=== PATIENT | male | born 1970 | race American Indian/Alaskan Native ===

== ENCOUNTER 2016-05-20 14:16 | Emergency (ER) | payer SELFPAY ==
[2016-05-20 14:52] VITALS: BP 128/85
[2016-05-20 15:12] LABS: Bacteria,Urine 1+ /HPF (Negative); Bilirubin,Urine NEG (Negative); Blood,Urine NEG (Negative); Ketones,Urine NEG (Negative); Leukocyte Esterase,Urine TR (Negative); Mucus,Urine FEW /HPF; Nitrite,Urine NEG (Negative); Protein,Urine <15 mg/dL mg/dL (Negative); WBC,Urine < 1.0 /HPF (0.0-6.0)
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
== END 2016-05-20 18:39 | disposition home or self-care (01) ==
LOC: ED 14:16
DX: N50.819 Testicular pain, unspecified (principal); R30.0 Dysuria; R10.30 Lower abdominal pain, unspecified; F12.10 Cannabis abuse, uncomplicated; Z87.891 Personal history of nicotine dependence
CPT/HCPCS: 81001; 99283

== ENCOUNTER 2016-11-26 16:18 | Emergency (ER) | payer SELFPAY ==
[2016-11-26 20:53] VITALS: BP 113/70
[2016-11-26] MEDS ORDERED: FLEXERIL PO ONE (21:14)
[2016-11-26] MEDS ORDERED: MOTRIN PO ONE (21:14)
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
== END 2016-11-26 22:40 | disposition home or self-care (01) ==
LOC: ED 16:18
DX: L02.214 Cutaneous abscess of groin (principal); M25.511 Pain in right shoulder; G89.29 Other chronic pain; Z87.891 Personal history of nicotine dependence
CPT/HCPCS: 99282

== ENCOUNTER 2017-09-05 18:05 | Emergency (ER) | payer SELFPAY ==
[2017-09-05 18:25] VITALS: BP 132/83
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
== END 2017-09-05 19:05 | disposition home or self-care (01) ==
LOC: ED 18:05
DX: H61.002 Unspecified perichondritis of left external ear (principal); Z87.891 Personal history of nicotine dependence
CPT/HCPCS: 99281

== ENCOUNTER 2017-11-20 06:38 | Inpatient (IN) | payer OTHER ==
[2017-11-20 07:15] LABS: Hematocrit 41.2 % (35.5-45.6); Mean Corpuscular HGB Conc 34 % (32-34); Mean Corpuscular Hemoglobin 32 pg (28-32); Mean Corpuscular Volume 94 fl (84-94); Platelet Count 176 K/mm3 (140-440); Red Blood Count 4.41 M/mm3 (3.65-5.03); Red Cell Distribution Width 13.3 % (13.2-15.2)
[2017-11-20] MEDS ORDERED: ASPIRIN PO ONE (08:03)
[2017-11-20] MEDS ORDERED: NITRO-BID 2% TP ONE (08:03)
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
[2017-11-20 08:11] LABS: BUN/Creatinine Ratio 11; Blood Urea Nitrogen 12 mg/dL (9-20); Calcium 9.6 mg/dL (8.4-10.2); Hemolysis Index 5
[2017-11-20 08:27] LABS: Eosinophils % (Manual) 0 % (0.0-4.3); Total Cells Counted 100
[2017-11-20 08:28] LABS: Platelet Estimate Consistent w Auto; RBC Morphology Normal
[2017-11-20] MEDS ORDERED: BABY ASPIRIN PO STA (09:00)
[2017-11-20] MEDS ORDERED: SODIUM CHLORIDE FLUSH SYRINGE 10 ML IV PRN (09:00)
[2017-11-20] MEDS ORDERED: MORPHINE IV PRN (09:00)
--- NOTE | 2017-11-20 09:04 | History and Physical Report ---
History of Present Illness Date of examination: 11/20/17 Chief complaint: Chest pain History of present illness: 47-year-old -[place] man with no significant past medical history presented to the emergency department complaining of chest pain that has been going on for the last 3 days. Pain is in the epigastric area radiating to the neck, sharp, 10 out of 10 intensity, associated with shortness of breath. Patient is also complaining pressure like sensation. No alleviating or aggravating factors identified. Patient denied any cough, diaphoresis, fever, chills. REVIEW OF SYSTEMS: GENERAL: no weight change, no fatigue, no fever HEAD: no head ache EYES: no blurry vision, no acute visual loss EARS: no hearing loss, no discharge, no earache NOSE: no stuffiness, no sneezing, no discharge MOUTH, THROAT AND NECK: no bleeding gums, no sore throat, no swollen neck CARDIAC: As stated in the HPI. RESPIRATORY: As stated in the HPI. GI: no decreased appetite, no nausea, no vomiting, no dysphagia, no diarrhea, no constipation, no abdominal pain URINARY: no change in frequency, no urgency, no polyuria, no hematuria, no incontinence MUSCULOSKELETAL: no muscle weakness, no pain, no joint stiffness NEUROLOGIC: no loss of sensation/numbness, no tingling, no tremors, no weakness/ paralysis HEMATOLOGIC: no anemia, no easy bruising SKIN: no rashes ENDOCRINE: no heat/cold intolerance, no polyuria, no polydipsia, no thyroid problems, no diabetes PSYCHIATRIC: no anxiety, no depression, no suicidal ideations Past History Past Medical History: No medical history Past Surgical History: Other (hernia repair) Social history: smoking (creatine), alcohol abuse (conclusion on 6 packs of beer ), full code. denies: prescription drug abuse, IV drug use Family history: CAD (father), other (his mother has stomach aneurysm) Medications and Allergies Allergies Allergy/AdvReac Type Severity Reaction Status Date / Time No Known Allergies Allergy Verified 12/08/14 17:38 Home Medications Medication Instructions Recorded Confirmed Last Taken Type Permethrin 5% [Acticin 5% CREAM] 1 applicatio TP ONCE #1 tube 12/08/14 Unknown Rx Ciprofloxacin HCl [Ciprofloxacin 500 mg PO Q12HR #20 tab 02/03/16 Unknown Rx TAB] Ibuprofen [Motrin] 400 mg PO Q8H PRN #21 tablet 12/11/16 Unknown Rx Tamsulosin [Flomax] 0.4 mg PO QDAY #7 cap 02/03/16 Unknown Rx Ibuprofen [Motrin] 800 mg PO Q8HR PRN #12 tablet 05/20/16 Unknown Rx Sulfamethoxazole/Trimethoprim 1 each PO BID #12 tablet 05/20/16 Unknown Rx [Bactrim DS TAB] Ibuprofen [Motrin] 800 mg PO Q8HR PRN #21 tablet 11/26/16 Unknown Rx cephALEXin [Keflex] 500 mg PO Q12HR #14 cap 11/26/16 Unknown Rx methOCARBAMOL [Robaxin TAB] 500 mg PO TID #21 tab 11/26/16 Unknown Rx Ciprofloxacin HCl [Cipro] 500 mg PO BID #14 tablet 09/05/17 Unknown Rx Ibuprofen [Motrin] 800 mg PO Q8HR PRN #15 tablet 09/05/17 Unknown Rx Exam - Physical Exam Narrative exam: Not in cardiopulmonary distress. The patient appeared well nourished and normally developed. Vital signs as documented. Head exam is unremarkable. No scleral icterus . Neck is without jugular venous distension, thyromegaly, or carotid bruits. Lungs are clear to auscultation. Cardiac exam reveals regular rate and Rhythm. First and second heart sounds normal. No murmurs, rubs or gallops. Abdominal exam reveals normal bowel sounds, no masses, no organomegaly and no aortic enlargement. Extremities are nonedematous and both femoral and pedal pulses are normal. WHEEL AND PINION INSPECTOR: Alert and oriented 3. No focal weakness. - Constitutional Vitals: Temp Pulse Resp BP Pulse Ox 98.5 F 70 19 136/89 97 11/20/17 06:52 11/20/17 08:31 11/20/17 08:31 11/20/17 08:31 11/20/17 08:31 Results - Labs CBC & Chem 7: 11/20/17 07:06 11/20/17 07:06 Labs: Laboratory Last Values WBC 7.0 K/mm3 (4.5-11.0) 11/20/17 07:06 RBC 4.41 M/mm3 (3.65-5.03) 11/20/17 07:06 Hgb 14.0 gm/dl (11.8-15.2) 11/20/17 07:06 Hct 41.2 % (35.5-45.6) 11/20/17 07:06 MCV 94 fl (84-94) 11/20/17 07:06 MCH 32 pg (28-32) 11/20/17 07:06 MCHC 34 % (32-34) 11/20/17 07:06 RDW 13.3 % (13.2-15.2) 11/20/17 07:06 Plt Count 176 K/mm3 (140-440) 11/20/17 07:06 Lymph % (Auto) Labor Delivery Specialist 11/20/17 07:06 Add Manual Diff Complete 11/20/17 07:06 Total Counted 100 11/20/17 07:06 Seg Neutrophils % Labor Delivery Specialist 11/20/17 07:06 Seg Neuts % (Manual) 35.0 % (40.0-70.0) L 11/20/17 07:06 Band Neutrophils % 0 % 11/20/17 07:06 Lymphocytes % (Manual) 52.0 % (13.4-35.0) H 11/20/17 07:06 Reactive Lymphs % (Man) 0 % 11/20/17 07:06 Monocytes % (Manual) 12.0 % (0.0-7.3) H 11/20/17 07:06 Eosinophils % (Manual) 0 % (0.0-4.3) 11/20/17 07:06 Basophils % (Manual) 1.0 % (0.0-1.8) 11/20/17 07:06 Metamyelocytes % 0 % 11/20/17 07:06 Myelocytes % 0 % 11/20/17 07:06 Promyelocytes % 0 % 11/20/17 07:06 Blast Cells % 0 % 11/20/17 07:06 Nucleated RBC % Not Reportable 11/20/17 07:06 Seg Neutrophils # Man 2.5 K/mm3 (1.8-7.7) 11/20/17 07:06 Band Neutrophils # 0.0 K/mm3 11/20/17 07:06 Lymphocytes # (Manual) 3.6 K/mm3 (1.2-5.4) 11/20/17 07:06 Abs React Lymphs (Man) 0.0 K/mm3 11/20/17 07:06 Monocytes # (Manual) 0.8 K/mm3 (0.0-0.8) 11/20/17 07:06 Eosinophils # (Manual) 0.0 K/mm3 (0.0-0.4) 11/20/17 07:06 Basophils # (Manual) 0.1 K/mm3 (0.0-0.1) 11/20/17 07:06 Metamyelocytes # 0.0 K/mm3 11/20/17 07:06 Myelocytes # 0.0 K/mm3 11/20/17 07:06 Promyelocytes # 0.0 K/mm3 11/20/17 07:06 Blast Cells # 0.0 K/mm3 11/20/17 07:06 WBC Morphology Not Reportable 11/20/17 07:06 Hypersegmented Neuts Not Reportable 11/20/17 07:06 Hyposegmented Neuts Not Reportable 11/20/17 07:06 Hypogranular Neuts Not Reportable 11/20/17 07:06 Smudge Cells Not Reportable 11/20/17 07:06 Toxic Granulation Not Reportable 11/20/17 07:06 Toxic Vacuolation Not Reportable 11/20/17 07:06 Dohle Bodies Not Reportable 11/20/17 07:06 Pelger-Huet Anomaly Not Reportable 11/20/17 07:06 Jessica Rods Not Reportable 11/20/17 07:06 Platelet Estimate Consistent w auto 11/20/17 07:06 Clumped Platelets Not Reportable 11/20/17 07:06 Plt Clumps, EDTA Not Reportable 11/20/17 07:06 Large Platelets Not Reportable 11/20/17 07:06 Giant Platelets Not Reportable 11/20/17 07:06 Platelet Satelliting Not Reportable 11/20/17 07:06 Plt Morphology Comment Not Reportable 11/20/17 07:06 RBC Morphology Normal 11/20/17 07:06 Dimorphic RBCs Not Reportable 11/20/17 07:06 Polychromasia Not Reportable 11/20/17 07:06 Hypochromasia Not Reportable 11/20/17 07:06 Poikilocytosis Not Reportable 11/20/17 07:06 Anisocytosis Not Reportable 11/20/17 07:06 Microcytosis Not Reportable 11/20/17 07:06 Macrocytosis Not Reportable 11/20/17 07:06 Spherocytes Not Reportable 11/20/17 07:06 Pappenheimer Bodies Not Reportable 11/20/17 07:06 Sickle Cells Not Reportable 11/20/17 07:06 Target Cells Not Reportable 11/20/17 07:06 Tear Drop Cells Not Reportable 11/20/17 07:06 Ovalocytes Not Reportable 11/20/17 07:06 Helmet Cells Not Reportable 11/20/17 07:06 Perez-[place] Bodies Not Reportable 11/20/17 07:06 [place] Rings Not Reportable 11/20/17 07:06 Yana Cells Not Reportable 11/20/17 07:06 Bite Cells Not Reportable 11/20/17 07:06 Crenated Cell Not Reportable 11/20/17 07:06 Elliptocytes Not Reportable 11/20/17 07:06 Acanthocytes (Spur) Not Reportable 11/20/17 07:06 Rouleaux Not Reportable 11/20/17 07:06 Hemoglobin C Crystals Not Reportable 11/20/17 07:06 Schistocytes Not Reportable 11/20/17 07:06 Malaria parasites Not Reportable 11/20/17 07:06 Salvador Bodies Not Reportable 11/20/17 07:06 Hem Pathologist Commnt No 11/20/17 07:06 Sodium 145 mmol/L (137-145) 11/20/17 07:06 Potassium 4.0 mmol/L (3.6-5.0) 11/20/17 07:06 Chloride 107.3 mmol/L (98-107) H 11/20/17 07:06 Carbon Dioxide 23 mmol/L (22-30) 11/20/17 07:06 Anion Gap 19 mmol/L 11/20/17 07:06 BUN 12 mg/dL (9-20) 11/20/17 07:06 Creatinine 1.1 mg/dL (0.8-1.5) 11/20/17 07:06 Estimated GFR > 60 ml/min 11/20/17 07:06 BUN/Creatinine Ratio 11 % 11/20/17 07:06 Glucose 86 mg/dL (75-100) 11/20/17 07:06 Calcium 9.6 mg/dL (8.4-10.2) 11/20/17 07:06 Troponin T < 0.010 ng/mL (0.00-0.029) 11/20/17 07:06 Assessment and Plan Assessment and plan: Chest pain - Cardiac enzymes are negative, EKG no change from previous one - Stress test ordered - Pain control DVT prophylaxis - Lovenox Disposition - Admit to telemetry floor Advance Directives: Yes VTE prophylaxis?: Chemical Plan of care discussed with patient/family: Yes
--- NOTE | 2017-11-20 09:07 | XRay Report ---
AP CHEST: HISTORY: chest pain, leukocytosis AP view of the chest demonstrates a normal mediastinal and cardiac contour with clear lungs and normal bony and soft tissue structures. IMPRESSION: Unremarkable AP chest.
[2017-11-20 09:41] LABS: Chol/HDL Ratio 2.8 %
[2017-11-20] MEDS ORDERED: PEPCID PO SCH (10:00)
[2017-11-20] MEDS ORDERED: LEXISCAN IV ONE ×2 (10:05→10:10)
--- NOTE | 2017-11-20 13:12 | Discharge Summary ---
Providers - Providers Date of Admission: 11/20/17 08:51 Attending physician: PAO DALE MD 11/20/17 Consult to Cardiac Rehabilitation [CONS] Routine Reason For Exam: Phase I Primary care physician: TERE LÓPEZ MD Hospitalization Condition: Stable Disposition: DC-01 TO HOME OR SELFCARE Time spent for discharge: 32 minutes - Discharge Diagnoses (1) Chest pain Status: Acute (2) Acid reflux disease Status: Acute Core Measure Documentation - Palliative Care Palliative Care/ Comfort Measures: Not Applicable - Core Measures Any of the following diagnoses?: none Exam - Physical Exam Narrative exam: Not in cardiopulmonary distress. The patient appeared well nourished and normally developed. Vital signs as documented. Head exam is unremarkable. No scleral icterus . Neck is without jugular venous distension, thyromegaly, or carotid bruits. Lungs are clear to auscultation. Cardiac exam reveals regular rate and Rhythm. First and second heart sounds normal. No murmurs, rubs or gallops. Abdominal exam reveals normal bowel sounds, no masses, no organomegaly and no aortic enlargement. Extremities are nonedematous and both femoral and pedal pulses are normal. RESTAURANT SERVER: Alert and oriented 3. No focal weakness. - Constitutional Vitals: Temp Pulse Resp BP Pulse Ox 98.5 F 70 19 136/89 97 11/20/17 06:52 11/20/17 08:31 11/20/17 08:31 11/20/17 08:31 11/20/17 08:31 Plan Activity: no restrictions Weight Bearing Status: Full Weight Bearing Diet: regular Additional Instructions: Follow up at [facility] in 1-2 weeks. Follow up with: TERE LÓPEZ MD [Primary Care Provider] - 7 Days Prescriptions: Famotidine [Pepcid] 20 mg PO BID #20 tablet Ibuprofen [Motrin 400 MG tab] 400 mg PO Q8H PRN #21 tablet PRN Reason: Pain methOCARBAMOL [Robaxin TAB] 500 mg PO TID #21 tab
[2017-11-20 16:04] VITALS: BP 121/75
--- NOTE | 2017-11-21 05:48 | Treadmill Report ---
PROCEDURE: Nuclear perfusion study REASON FOR STUDY: For chest pain and shortness of breath. READING PHYSICIAN: Phill Mueller MD IMAGING PROTOCOL: The patient received 10 mCi of Technetium 99m Tetrofosmin for resting image and 28 mCi of Technetium 99m Tetrofosmin for stress imaging. The imaging for the whole procedure was completed 30-90 minutes following the initial injection of Technetium 99m Tetrofosmin. The SPECT imaging in the 180 degree arc was performed in the right anterior oblique projection. Computerized reconstruction of the images was performed for analysis. IMAGING RESULTS: Normal cavity size from stress to rest. Normal distribution of radionuclide in the anterior, inferior, septal, and apical regions. Gated SPECT, EF 60%. The patient exercised on Rudy protocol for 12 minutes 15 seconds, had no EKG changes suggestive of ischemia. SUMMARY: 1. Negative treadmill EKG. 2. Good exercise capacity 12 minutes 15 seconds Rudy protocol. 3. No exaggerated BP response to exercise. 4. Normal rest and stress myocardial perfusion scan. No significant stress ischemia. No wall motion abnormality. Gated SPECT, EF of 60%. JOB# [id number] SULY/SUZY
== END 2017-11-20 18:00 | disposition home or self-care (01) | DRG 313 ==
LOC: ED 06:38 → 4A 08:51
PROVIDERS: ADMIT Internal Medicine; ATTEND Internal Medicine
DX: R07.9 Chest pain, unspecified (principal); K21.9 Gastro-esophageal reflux disease without esophagitis; F17.200 Nicotine dependence, unspecified, uncomplicated; F10.10 Alcohol abuse, uncomplicated; Z82.49 Family history of ischemic heart disease and other diseases of the circulatory system; Z79.899 Other long term (current) drug therapy
CPT/HCPCS: 36415; 71045; 78452; 80048; 80061; 84484; 85007; 85025; 93005; 93010; 93017; A9502; J2785

== ENCOUNTER 2019-01-18 17:00 | Emergency (ER) | payer SELFPAY ==
[2019-01-18 17:12] VITALS: BP 109/78
--- NOTE | 2019-01-18 17:14 | Event Note ---
ED Screening Note Date of service: 01/18/19 Time: 17:10 ED Screening Note: This is a 48 y.o. M. that presents to the ER with weakness for 3-4 days. This initial assessment/diagnostic orders/clinical plan/treatment(s) is/are subject to change based on patients health status, clinical progression and re- assessment by fellow clinical providers in the ED. Further treatment and workup at subsequent clinical providers discretion. Patient/guardian urged not to elope from the ED as their condition may be serious if not clinically assessed and managed. Initial orders include: Labs
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
[2019-01-18 17:53] LABS: Hemoglobin 14.5 gm/dl (11.8-15.2); Mean Corpuscular HGB Conc 34 % (32-34); Mean Corpuscular Volume 94 fl (84-94); Platelet Count 189 K/mm3 (140-440); Red Blood Count 4.58 M/mm3 (3.65-5.03); Red Cell Distribution Width 13.5 % (13.2-15.2)
[2019-01-18 17:56] LABS: Alanine Aminotransferase 25 units/L (7-56); Albumin 4.1 g/dL (3.9-5); BUN/Creatinine Ratio 15; Blood Urea Nitrogen 16 mg/dL (9-20); Calcium 9.7 mg/dL (8.4-10.2); Hemolysis Index 18
== END 2019-01-18 17:46 | disposition home or self-care (01) ==
LOC: ED 17:00
DX: J01.90 Acute sinusitis, unspecified (principal)
CPT/HCPCS: 36415; 80053; 85027

== ENCOUNTER 2019-02-01 16:30 | Emergency (ER) | payer SELFPAY ==
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
[2019-02-01 21:32] VITALS: BP 120/80
== END 2019-02-01 21:32 | disposition home or self-care (01) ==
LOC: ED 16:30
DX: L73.9 Follicular disorder, unspecified (principal); Z87.891 Personal history of nicotine dependence; Z98.890 Other specified postprocedural states; Z79.899 Other long term (current) drug therapy

== ENCOUNTER 2019-05-26 07:30 | Emergency (ER) | payer SELFPAY ==
[2019-05-26] MEDS ORDERED: AMOXICILLIN/K CLAV 875/125MG TAB PO ONE (08:15)
[2019-05-26] MEDS ORDERED: ACETAMINOPHEN W/CODEINE 300-30 MG TAB PO ONE (08:15)
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
[2019-05-26] MEDS ORDERED: IBUPROFEN 800 MG TAB PO ONE (08:26)
[2019-05-26 09:38] VITALS: BP 130/83
== END 2019-05-26 09:37 | disposition left against medical advice (07) ==
LOC: ED 07:30
DX: K08.89 Other specified disorders of teeth and supporting structures (principal); Z98.890 Other specified postprocedural states; Z87.891 Personal history of nicotine dependence; Z79.899 Other long term (current) drug therapy
CPT/HCPCS: 99282

== ENCOUNTER 2019-11-26 12:40 | Emergency (ER) | payer SELFPAY ==
[2019-11-26 12:48] VITALS: BP 121/74
[2019-11-26] MEDS ORDERED: DIPHtheria,PERTUSSIS(ACELL),TETANUS VACCINE/PF 0.5 ML VIAL IM ONE (14:06)
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
== END 2019-11-26 16:33 | disposition home or self-care (01) ==
LOC: ED 12:40
DX: S91.139A Puncture wound without foreign body of unspecified toe(s) without damage to nail, initial encounter (principal); L02.01 Cutaneous abscess of face; Z98.890 Other specified postprocedural states; Z87.891 Personal history of nicotine dependence; Z79.2 Long term (current) use of antibiotics; Z79.899 Other long term (current) drug therapy; X58.XXXA Exposure to other specified factors, initial encounter; Y93.89 Activity, other specified; Y92.89 Other specified places as the place of occurrence of the external cause; Y99.8 Other external cause status
CPT/HCPCS: 90471; 90715; 99282

== ENCOUNTER 2020-01-08 19:39 | Emergency (ER) | payer SELFPAY ==
[2020-01-08 21:22] VITALS: BP 126/82
[2020-01-08 23:09] LABS: Basophils # (Auto) 0.1 K/mm3 (0.0-0.1); Basophils % (Auto) 0.7 % (0.0-1.8); Eosinophils # (Auto) 0.3 K/mm3 (0.0-0.4); Hematocrit 41.7 % (35.5-45.6); Hemoglobin 14.4 gm/dl (11.8-15.2); Lymphocytes # (Auto) 3.7 K/mm3 (1.2-5.4); Lymphocytes % (Auto) 42.6 % (13.4-35.0); Mean Corpuscular HGB Conc 35 % (32-34); Mean Corpuscular Volume 94 fl (84-94); Monocytes # (Auto) 0.7 K/mm3 (0.0-0.8); Monocytes % (Auto) 8.4 % (0.0-7.3); Platelet Count 185 K/mm3 (140-440); Red Blood Count 4.46 M/mm3 (3.65-5.03); Red Cell Distribution Width 13.2 % (13.2-15.2)
[2020-01-08 23:22] LABS: BUN/Creatinine Ratio 15; Blood Urea Nitrogen 18 mg/dL (9-20); Calcium 9.5 mg/dL (8.4-10.2); Hemolysis Index 9
== END 2020-01-09 | disposition left against medical advice (07) ==
LOC: ED 19:39
DX: R42 Dizziness and giddiness (principal); Z53.21 Procedure and treatment not carried out due to patient leaving prior to being seen by health care provider
CPT/HCPCS: 36415; 80048; 85025

== ENCOUNTER 2020-01-09 18:32 | Emergency (ER) | payer SELFPAY ==
[2020-01-09 19:09] VITALS: BP 144/90
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
== END 2020-01-09 19:36 | disposition home or self-care (01) ==
LOC: ED 18:32
DX: H10.9 Unspecified conjunctivitis (principal); Z87.891 Personal history of nicotine dependence; Z98.890 Other specified postprocedural states; Z79.899 Other long term (current) drug therapy
CPT/HCPCS: 99281

== ENCOUNTER 2020-04-11 14:59 | Emergency (ER) | payer SELFPAY ==
[2020-04-11 16:00] VITALS: BP 107/79
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
== END 2020-04-11 17:37 | disposition home or self-care (01) ==
LOC: ED 14:59
DX: S39.012A Strain of muscle, fascia and tendon of lower back, initial encounter (principal); Z79.899 Other long term (current) drug therapy; Z98.890 Other specified postprocedural states; Z87.891 Personal history of nicotine dependence; X50.0XXA Overexertion from strenuous movement or load, initial encounter; Y93.89 Activity, other specified; Y92.89 Other specified places as the place of occurrence of the external cause; Y99.0 Civilian activity done for income or pay
CPT/HCPCS: 99281

== ENCOUNTER 2020-05-10 18:21 | Emergency (ER) | payer SELFPAY ==
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
[2020-05-10 19:33] VITALS: BP 142/79
== END 2020-05-10 19:46 | disposition home or self-care (01) ==
LOC: ED 18:21
DX: K05.10 Chronic gingivitis, plaque induced (principal); K04.7 Periapical abscess without sinus; Z98.890 Other specified postprocedural states; Z87.891 Personal history of nicotine dependence; Z79.899 Other long term (current) drug therapy
CPT/HCPCS: 99282

== ENCOUNTER 2020-08-15 13:12 | Emergency (ER) | payer SELFPAY ==
--- NOTE | 2020-08-15 14:46 | XRay Report ---
CHEST 2 VIEWS INDICATION / CLINICAL INFORMATION: chest pain. COMPARISON: None available. FINDINGS: SUPPORT DEVICES: None. HEART / MEDIASTINUM: No significant abnormality. LUNGS / PLEURA: No significant pulmonary or pleural abnormality. No pneumothorax. ADDITIONAL FINDINGS: No significant additional findings. IMPRESSION: 1. No acute findings. Signer Name: David Kilpatrick MD Signed: 08/15/2020 2:42 PM Workstation Name: [id number]
[2020-08-15 16:44] LABS: Basophils # (Auto) 0.1 K/mm3 (0.0-0.1); Basophils % (Auto) 0.9 % (0.0-1.8); Eosinophils # (Auto) 0.2 K/mm3 (0.0-0.4); Eosinophils % (Auto) 2.8 % (0.0-4.3); Hematocrit 42.9 % (35.5-45.6); Hemoglobin 14.5 gm/dl (11.8-15.2); Lymphocytes # (Auto) 3.3 K/mm3 (1.2-5.4); Lymphocytes % (Auto) 40.4 % (13.4-35.0); Mean Corpuscular HGB Conc 34 % (32-34); Mean Corpuscular Volume 95 fl (84-94); Monocytes # (Auto) 0.8 K/mm3 (0.0-0.8); Platelet Count 173 K/mm3 (140-440); Red Blood Count 4.54 M/mm3 (3.65-5.03); Red Cell Distribution Width 13.7 % (13.2-15.2)
[2020-08-15 17:11] LABS: Alanine Aminotransferase 41 units/L (7-56); Albumin 4.4 g/dL (3.9-5); BUN/Creatinine Ratio 16; Blood Urea Nitrogen 16 mg/dL (9-20); Calcium 9.2 mg/dL (8.4-10.2); Hemolysis Index 17
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
[2020-08-15 19:22] VITALS: BP 138/76
--- NOTE | 2020-08-16 14:16 | Electrocardiograph Report ---
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
== END 2020-08-15 19:23 | disposition home or self-care (01) ==
LOC: ED 13:12
DX: K21.9 Gastro-esophageal reflux disease without esophagitis (principal); R07.89 Other chest pain; Z98.890 Other specified postprocedural states; Z79.899 Other long term (current) drug therapy
CPT/HCPCS: 36415; 71046; 80053; 84484; 85025; 93005; 99283

== ENCOUNTER 2020-10-09 15:52 | Emergency (ER) | payer SELFPAY ==
[2020-10-09 17:30] VITALS: BP 126/84
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
== END 2020-10-09 19:38 | disposition home or self-care (01) ==
LOC: ED 15:52
DX: L02.01 Cutaneous abscess of face (principal); Z98.890 Other specified postprocedural states; Z79.899 Other long term (current) drug therapy
CPT/HCPCS: 99281

== ENCOUNTER 2021-01-08 12:52 | Emergency (ER) | payer SELFPAY ==
[2021-01-08 13:00] VITALS: BP 116/81
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
--- NOTE | 2021-01-08 15:06 | XRay Report ---
CHEST 2 VIEWS INDICATION / CLINICAL INFORMATION: cough. COMPARISON: 08/15/2020 FINDINGS: SUPPORT DEVICES: None. HEART / MEDIASTINUM: No significant abnormality. LUNGS / PLEURA: No significant pulmonary or pleural abnormality. No pneumothorax. ADDITIONAL FINDINGS: No significant additional findings. IMPRESSION: 1. No acute findings. Signer Name: David Kilpatrick MD Signed: 01/08/2021 3:01 PM Workstation Name: [id number]
== END 2021-01-08 15:55 | disposition home or self-care (01) ==
LOC: ED 12:52
DX: J06.9 Acute upper respiratory infection, unspecified (principal); R05.9 Cough, unspecified
CPT/HCPCS: 71046; 99283

== ENCOUNTER 2021-06-03 22:59 | Emergency (ER) | payer SELFPAY ==
[2021-06-04 02:01] VITALS: BP 119/87
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
[2021-06-04] MEDS: IBUPROFEN 800 MG TAB PO ONE (02:48)
[2021-06-04] MEDS: SULFAMETHOXAZOLE/TRIMETHOPRIM 800/160MG DS TAB PO ONE (02:49)
== END 2021-06-04 03:05 | disposition home or self-care (01) ==
LOC: ED 22:59
DX: S61.230A Puncture wound without foreign body of right index finger without damage to nail, initial encounter (principal); L03.011 Cellulitis of right finger; W22.8XXA Striking against or struck by other objects, initial encounter; Y93.89 Activity, other specified; Y92.89 Other specified places as the place of occurrence of the external cause; Y99.8 Other external cause status
CPT/HCPCS: 99282